=== PATIENT | female | born 1975 | race American Indian/Alaskan Native ===

== ENCOUNTER 2019-04-27 14:25 | Emergency (ER) | payer OTHER ==
[2019-04-27] MEDS ORDERED: BOOSTRIX IM ONE (15:00)
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
[2019-04-27] MEDS ORDERED: AUGMENTIN 875 MG PO ONE (19:29)
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
[2019-04-27] MEDS ORDERED: NORCO 5/325 PO STA (19:42)
[2019-04-27 20:12] VITALS: BP 169/100
== END 2019-04-27 20:12 | disposition home or self-care (01) ==
LOC: ED 14:25
DX: S00.81XA Abrasion of other part of head, initial encounter (principal); F17.200 Nicotine dependence, unspecified, uncomplicated; Y04.1XXA Assault by human bite, initial encounter; Y93.89 Activity, other specified; Y92.89 Other specified places as the place of occurrence of the external cause; Y99.8 Other external cause status
CPT/HCPCS: 90471; 90715

== ENCOUNTER 2019-08-19 20:30 | Emergency (ER) | payer SELFPAY ==
[2019-08-19 21:09] VITALS: BP 140/90
--- NOTE | 2019-08-19 21:40 | Emergency Department Report ---
Blank Doc - Documentation Documentation: 44-year-old female that presents with vaginal discharge and pelvic pain. This initial assessment/diagnostic orders/clinical plan/treatment(s) is/are subject to change based on patient's health status, clinical progression and re- assessment by fellow clinical providers in the ED. Further treatment and workup at subsequent clinical providers discretion. Patient/guardians urged not to elope from the ED as their condition may be serious if not clinically assessed and managed. Initial orders include: 1- Patient sent to [facility] for further evaluation and treatment 2- UA 3- pelvic exam to be done
[2019-08-19 22:31] LABS: Bilirubin,Urine NEG (Negative); Blood,Urine SM (Negative); Color,Urine Straw (Yellow); Protein,Urine <15 mg/dL mg/dL (Negative); Urobilinogen,Urine < 2.0 mg/dL (<2.0)
[2019-08-19 22:34] LABS: HCG Qualitative,Urine Negative (Negative)
--- NOTE | 2019-08-20 00:14 | Emergency Department Report ---
ED Female HPI - General Chief complaint: Urogenital-Female Stated complaint: VAGINAL PAIN/DISCHARGE Time Seen by Provider: 08/19/19 21:28 Source: patient Mode of arrival: Ambulatory Limitations: No Limitations - History of Present Illness Initial comments: Patient is a 44-year-old female presents emergency room with complaints of suprapubic abdominal pain that began 2 days ago. She has associated white vaginal discharge and vaginal itching. She denies any nausea, vomiting, diarrhea, fever, urinary symptoms. She did not take everything over-the- counter. She is sexually active but denies concerns for STDs. She denies any past medical history. She denies any allergies to medications. She states her last menstrual cycle was July 20, 2019. - Related Data Previous Rx's Medication Instructions Recorded Last Taken Type Amoxicillin/Potassium Clav 1 each PO BID #14 tablet 04/27/19 Unknown Rx [Augmentin 875-125 Tablet] Ketorolac [Toradol] 10 mg PO Q6H PRN #14 tablet 04/27/19 Unknown Rx Mupirocin [Bactroban 2%] 1 applic TP TID #1 tube 04/27/19 Unknown Rx metroNIDAZOLE [metroNIDAZOLE 0.75% 45 gm TP QHS #7 gel..gram. 08/20/19 Unknown Rx gel TOPICAL] Allergies Allergy/AdvReac Type Severity Reaction Status Date / Time No Known Allergies Allergy Unverified 04/27/19 14:28 ED Review of Systems ROS: Stated complaint: VAGINAL PAIN/DISCHARGE Other details as noted in HPI Comment: All other systems reviewed and negative ED Past Medical Hx - Past Medical History Previous Medical History?: No - Surgical History Past Surgical History?: No - Social History Smoking Status: Never Smoker Substance Use Type: None - Medications Home Medications: Home Medications Medication Instructions Recorded Confirmed Last Taken Type Amoxicillin/Potassium Clav 1 each PO BID #14 tablet 04/27/19 Unknown Rx [Augmentin 875-125 Tablet] Ketorolac [Toradol] 10 mg PO Q6H PRN #14 tablet 04/27/19 Unknown Rx Mupirocin [Bactroban 2%] 1 applic TP TID #1 tube 04/27/19 Unknown Rx metroNIDAZOLE [metroNIDAZOLE 0.75% 45 gm TP QHS #7 gel..gram. 08/20/19 Unknown Rx gel TOPICAL] ED Physical Exam - General Limitations: No Limitations General appearance: alert, in no apparent distress - Head Head exam: Present: atraumatic, normocephalic - Eye Eye exam: Present: normal appearance - ENT ENT exam: Present: mucous membranes moist - Respiratory Respiratory exam: Present: normal lung sounds bilaterally. Absent: respiratory distress, wheezes, rales, rhonchi, stridor, chest wall tenderness, accessory muscle use, decreased breath sounds, prolonged expiratory - Cardiovascular Cardiovascular Exam: Present: regular rate, normal rhythm, normal heart sounds. Absent: systolic murmur, diastolic murmur, rubs, gallop - GI/Abdominal GI/Abdominal exam: Present: soft, normal bowel sounds. Absent: distended, tenderness, guarding, rebound, rigid - External exam: Absent: erythema, swelling, lesions, lacerations, ecchymosis, bleeding Speculum exam: Present: vaginal discharge (white, thick), other (community outreach manager: SAMARA collier). Absent: erythema, cervical discharge, vaginal bleeding, foreign body, tissue, laceration Bi-manual exam: Present: normal bi-manual exam. Absent: cervical motion tendernes, adnexal tenderness, adnexal mass - Neurological Exam Neurological exam: Present: alert, oriented X3 - Psychiatric Psychiatric exam: Present: normal affect, normal mood - Skin Skin exam: Present: warm, dry, intact ED Course Vital Signs 08/19/19 08/20/19 21:08 01:23 Temperature 99.4 F Pulse Rate 77 68 Respiratory 18 16 Rate Blood Pressure 140/90 O2 Sat by Pulse 100 99 Oximetry ED Medical Decision Making - Medical Decision Making Patient is a 44-year-old female presents emergency room with complaints of cowart prapubic abdominal pain that began 2 days ago. She has associated white vaginal discharge and vaginal itching. She denies any nausea, vomiting, diarrhea, fever, urinary symptoms. She did not take everything [id number]. She is sexually active but denies concerns for STDs. She denies any past medical history. She denies any allergies to medications. She states her last menstrual cycle was July 20, 2019. vss. on exam: white, thick vaginal discharge, no CMT, no adnexal ttp, no adnexal masses, community outreach manager: SAMARA collier. UA without signs of UTI. urine preg is negative. wet prep shows BV. g/c swab sent. offered pt prophylatic tx for g/c and she politely declined and is going to wait until her results come back. initially wrote flagyl tab, pt asked if she could have metrogel instead. advised pt to please use medication as prescribed. Do not drink alcohol while taking medication. Increase water intake. 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 Avoid sexual intercourse for 10 days. Please have partner tested and treated as well. Follow-up with your primary care doctor. Follow-up with [facility]. Please be seen by the health department for full STD panel. Return to the emergency room for any new or worsening symptoms. - Differential Diagnosis STD, UTI, vaginitis, BV, yeast Critical care attestation.: If time is entered above; I have spent that time in minutes in the direct care of this critically ill patient, excluding procedure time. ED Disposition Clinical Impression: Bacterial vaginosis, Suprapubic pain, Vaginal discharge, Vaginal itching Disposition: TO HOME OR SELFCARE Is pt being admited?: No Does the pt Need Aspirin: No Condition: Stable Instructions: Bacterial Vaginosis (ED) Additional Instructions: Please take medication as prescribed. Do not drink alcohol while taking medication. Increase water intake. 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 Avoid sexual intercourse for 10 days. Please have partner tested and treated as well. Follow-up with your primary care doctor. Follow-up with [facility]. Please be seen by the health department for full STD panel. Return to the emergency room for any new or worsening symptoms. Prescriptions: metroNIDAZOLE [metroNIDAZOLE 0.75% gel TOPICAL] 45 gm TP QHS #7 gel..gram. Referrals: KHADAR WARE MD [Staff Physician] - 2-3 Days [facility] [Provider Group] - 2-3 Days [facility] [Outside] - 2-3 Days [facility] [Outside] - 2-3 Days Forms: STI Treatment and Prevention Time of Disposition: 01:11 Print Language: LITHUANIAN
== END 2019-08-20 01:23 | disposition home or self-care (01) ==
LOC: ED 20:30
DX: N76.0 Acute vaginitis (principal); B96.89 Other specified bacterial agents as the cause of diseases classified elsewhere; L29.2 Pruritus vulvae; Z79.2 Long term (current) use of antibiotics; Z79.899 Other long term (current) drug therapy
CPT/HCPCS: 81001; 81025; 87210; 87591

== ENCOUNTER 2019-08-21 20:41 | Emergency (ER) | payer SELFPAY ==
--- NOTE | 2019-08-21 20:44 | Emergency Department Report ---
Blank Doc - Documentation Documentation: Patient was prescribed the wrong prescription. Medication was written for top ical Metronizole but should be written for vaginal suppository. This provider re wrote prescription for vaginal suppository.
[2019-08-21 21:24] VITALS: BP 114/76
== END 2019-08-21 21:00 | disposition left against medical advice (07) ==
LOC: ED 20:41
DX: Z53.21 Procedure and treatment not carried out due to patient leaving prior to being seen by health care provider (principal)